=== PATIENT | male | born 1985 | race Hispanic/Latino ===

== ENCOUNTER 2021-12-03 12:40 | Outpatient (CLI) | payer BC | END 2021-12-03 12:41 | disposition home or self-care (01) | LOC: BICMRI 12:40 | PROVIDERS: ATTEND Nurse Practitioner Family | DX: M23.91 Unspecified internal derangement of right knee (principal); S83.241A Other tear of medial meniscus, current injury, right knee, initial encounter ==

== ENCOUNTER 2021-12-21 15:54 | Outpatient (CLI) | payer BC ==
[2021-12-21 17:04] LABS: #Eosinphils 0.1 10x3/uL (0.0-0.5); #Monocytes 0.6 10x3/uL (0.0-1.1); #Neutrophils 3.4 10x3/uL (1.5-8.4); %Basophils 0.6 % (0.0-2.0); %Eosinophils 1.2 % (0.0-6.0); %Lymphocytes 36.9 % (18.0-47.0); %Monocytes 9.6 % (0.0-10.0); %Neutrophils 51.5 % (40.0-75.0); Hemoglobin 15.1 g/dL (13.5-17.5); Mean Corpuscular HGB CONC 33.1 g/dL (32.0-36.0); Mean Corpuscular Hemoglobin 28.6 pg (27.0-33.0); Mean Corpuscular Volume 86.4 fl (81.2-95.1); Mean Platelet Volume 9.6 fl (7.4-10.4); Platelet Count 322 10x3/uL (150-450); RBC Distribution Width 12.5 % (11.5-14.5); Red Blood Cell (RBC) Count 5.28 10x6/uL (4.32-5.72); White Blood Cell (WBC) Count 6.6 10x3/uL (3.5-10.5)
[2021-12-21 17:22] LABS: Anion Gap 16 mmol/L (10-20); BUN (Urea Nitrogen) 13 mg/dL (8.9-20.6); Calc. Creatinine Clearance 0 mL/min (70-130); Calcium 9.3 mg/dL (7.8-10.44); Carbon Dioxide 25 mmol/L (22-29); Chloride 104 mmol/L (98-107); Estimated GFR 109; Glucose 93 mg/dL (70-105); Potassium 4.3 mmol/L (3.5-5.1); Sodium 141 mmol/L (136-145)
== END 2021-12-21 15:55 | disposition home or self-care (01) ==
LOC: LABBT 15:54
PROVIDERS: ATTEND Orthopaedic Surgery
DX: Z01.818 Encounter for other preprocedural examination (principal); M23.321 Other meniscus derangements, posterior horn of medial meniscus, right knee
CPT/HCPCS: 80048; 85025; 87811

== ENCOUNTER 2021-12-24 07:09 | Day surgery (SDC) | payer BC ==
[2021-12-22 12:41] VITALS: BMI 27.2
[2021-12-24] MEDS ORDERED: Sodium Chloride 0.9% 100 ML ONE (07:30)
[2021-12-24] MEDS ORDERED: CEFAZOLIN 2 GM VIAL ONE (07:30)
[2021-12-24] MEDS ORDERED: PROPOFOL 20 ML ONE (07:43)
[2021-12-24] MEDS ORDERED: Lidocaine 1% (PF) 30 ML VIAL ONE (07:43)
[2021-12-24] MEDS ORDERED: fentaNYL Citrate/PF 100 MCG/2 ML SYRINGE ONE (09:34)
[2021-12-24] MEDS ORDERED: Bupivacaine HCl 0.5%/Epinephrine 1:200,000/PF 30 ml Vial ONE (09:50)
[2021-12-24] MEDS ORDERED: PROPOFOL 200 MG/20 ML VIAL ONE (09:50)
[2021-12-24] MEDS ORDERED: Ondansetron PF 4 MG/2 ML Vial ONE (09:50)
[2021-12-24] MEDS ORDERED: Dexamethasone 20 MG/5 ML VIAL ONE (09:50)
[2021-12-24] MEDS ORDERED: Ketorolac Tromethamine 30 MG/ML VIAL ONE (09:50)
[2021-12-24] MEDS ORDERED: Lidocaine 1% PF 5 ML VIAL ONE (09:50)
[2021-12-24] MEDS ORDERED: Lidocaine 2% w/Epinephrine 1:200K 20 ML VIAL ONE (09:50)
== END 2021-12-24 13:14 | disposition home or self-care (01) ==
LOC: SDC 07:09
PROVIDERS: ATTEND Orthopaedic Surgery
PROC: 0SBC4ZZ Excision of Right Knee Joint, Percutaneous Endoscopic Approach (ICD-10-PCS; principal; 2021-12-24)
DX: S83.231A Complex tear of medial meniscus, current injury, right knee, initial encounter (principal); F17.200 Nicotine dependence, unspecified, uncomplicated
CPT/HCPCS: J0690; J1100; J1885; J2001; J2405; J2704; J3490